=== PATIENT | female | born 1945 | race Caucasian/White ===

== ENCOUNTER 2024-08-27 | Inpatient (IN) | payer MEDICARE, BC ==
[~2024-08-27] VITALS: Ht 162.6 cm; Wt 69.9 kg
[2024-08-27 00:36] LABS: BASOPHILS # (AUTO) 0.1 X10'3 (0-0.2); BASOPHILS % (AUTO) 0.9 % (0-1); EOSINOPHILS # (AUTO) 0.2 X10'3 (0-0.9); EOSINOPHILS % (AUTO) 3.2 % (0-6); HEMATOCRIT 41.4 % (35.0-45.0); HEMOGLOBIN 14.3 g/dl (12.0-16.0); LYMPHOCYTES # (AUTO) 1.5 X10'3 (1.1-4.8); LYMPHOCYTES % (AUTO) 24.7 % (21-51); MEAN CORPUSCULAR HEMOGLOBIN 33.4 PG (27.0-31.0); MEAN CORPUSCULAR HGB CONC 34.5 g/dL (33.0-36.5); MEAN PLATELET VOLUME 7.8 FL (7.4-10.4); MONOCYTES # (AUTO) 0.4 X10'3 (0-0.9); MONOCYTES % (AUTO) 5.9 % (2-12); NEUTROPHILS # (AUTO) 4.1 X10'3 (1.8-7.7); NEUTROPHILS % (AUTO) 65.3 % (42-75); PLATELET COUNT 218 X10'3 (140-440); RED BLOOD COUNT 4.27 X10'6 (4.20-5.60); WHITE BLOOD COUNT 6.2 X10'3 (4.5-11.0)
[2024-08-27 02:10] LABS: ALANINE AMINOTRANSFERASE 28 U/L (12-78); ALBUMIN 4.3 G/DL (3.4-5.0); ALBUMIN/GLOBULIN RATIO 1.2 (1.1-1.5); ALKALINE PHOSPHATASE 85 IU/L (46-116); ANION GAP 4 (8-16); ASPARTATE AMINO TRANSFERASE 20 U/L (10-37); BILIRUBIN,TOTAL 0.3 MG/DL (0.1-1.0); BLOOD UREA NITROGEN 23 MG/DL (7-18); CALCIUM 9.6 MG/DL (8.5-10.1); CHLORIDE 105 MMOL/L (99-107); CREATININE 1.21 MG/DL (0.40-0.90); GLUCOSE 135 MG/DL (70-104); POTASSIUM 3.7 MMOL/L (3.5-5.1); SODIUM 141 MMOL/L (135-145); TOTAL CARBON DIOXIDE 31.9 MMOL/L (24-32); TOTAL PROTEIN 7.8 G/DL (6.4-8.2); eCRCL 33 ML/MIN; eGFR 43 ML/MIN
[2024-08-27 02:18] LABS: PRO BRAIN NATRIURETIC PEPTIDE 142 PG/ML (0-450)
[2024-08-27 05:33] LABS: APTT 25 SECONDS (22-32); PROTHROMBIN TIME 10.3 SECONDS (9.0-12.0)
[2024-08-27] MEDS ORDERED: iohexol 350MG/ML 100ml bottle IV ONE (05:43)
[2024-08-27] MEDS: meclizine 12.5mg tablet PO ONE (05:53)
[2024-08-27] MEDS ORDERED: morphine 2 MG/ML inj. syringe IV PRN ×2 (07:15)
[2024-08-27] MEDS ORDERED: ondansetron/PF 4mg/2ml inj IV PRN (07:15)
[2024-08-27] MEDS: dextrose 5%-1/2 normal saline 1,000 ML IV SCH (07:15)
[2024-08-27] MEDS ORDERED: mag hydrox/Alum hydrox/simeth 30ml oral suspension PO PRN (07:15)
[2024-08-27] MEDS ORDERED: acetaminophen 325mg tablet PO PRN ×2 (07:15)
[2024-08-27] MEDS ORDERED: magnesium hydroxide 30ml (MOM) UD suspension PO PRN (07:15)
[2024-08-27] MEDS: docusate sod 100mg capsule PO SCH (08:00)
[2024-08-27 09:35] LABS: HEMOGLOBIN A1C 5.7 % (4.5-6.2)
[2024-08-27] MEDS: enoxaparin 40mg/0.4ml syringe SUBCUT SCH (09:43)
[2024-08-27] MEDS: aspirin 81mg, enteric-coated 1 TAB TABLET.DR PO SCH (09:43)
[2024-08-27 14:45] VITALS: BP 154/63; PULSE 66; RESP 20; TEMP 97.3
[2024-08-27 18:00] VITALS: BP 138/65; PULSE 72; RESP 16; TEMP 97.5; O2SAT 96
[2024-08-27] MEDS ORDERED: LOVA40TA2 (21:39)
[2024-08-27] MEDS ORDERED: ASCO100031 PO ×2 (21:46→22:07)
[2024-08-27] MEDS ORDERED: PSYL0.4C2 PO ×2 (21:46→22:08)
[2024-08-27] MEDS ORDERED: ACET-3414 PO ×2 (21:46→22:06)
[2024-08-27] MEDS ORDERED: ASPI-1265 PO ×2 (21:46→22:05)
[2024-08-27] MEDS ORDERED: [UNRECOGNIZED DRUG - CODE] PO (21:46)
[2024-08-27 22:00] VITALS: BP 107/50; PULSE 75; RESP 13; TEMP 97.6; O2SAT 96
[2024-08-27] MEDS ORDERED: VITA400T10 PO (22:09)
[2024-08-28 05:00] VITALS: BP_SYST 109; BP_SYST 115; BP_SYST 121; BP_DIAS 55; BP_DIAS 58; BP_DIAS 64; PULSE 64; PULSE 69; PULSE 71
[2024-08-28 06:00] VITALS: BP 121/55; PULSE 68; RESP 15; TEMP 97.8; O2SAT 96
[2024-08-28 06:14] LABS: BASOPHILS % (AUTO) 0.7 % (0-1); EOSINOPHILS # (AUTO) 0.3 X10'3 (0-0.9); EOSINOPHILS % (AUTO) 6.1 % (0-6); HEMATOCRIT 37.4 % (35.0-45.0); HEMOGLOBIN 12.8 g/dl (12.0-16.0); LYMPHOCYTES % (AUTO) 38.1 % (21-51); MEAN CORPUSCULAR HEMOGLOBIN 33.5 PG (27.0-31.0); MEAN CORPUSCULAR HGB CONC 34.3 g/dL (33.0-36.5); MEAN CORPUSCULAR VOLUME 97.5 FL (78-98); MEAN PLATELET VOLUME 8.4 FL (7.4-10.4); MONOCYTES # (AUTO) 0.4 X10'3 (0-0.9); MONOCYTES % (AUTO) 6.7 % (2-12); NEUTROPHILS # (AUTO) 2.5 X10'3 (1.8-7.7); NEUTROPHILS % (AUTO) 48.4 % (42-75); PLATELET COUNT 207 X10'3 (140-440); RED BLOOD COUNT 3.83 X10'6 (4.20-5.60); RED CELL DISTRIBUTION WIDTH 12.9 % (11.5-14.5); WHITE BLOOD COUNT 5.3 X10'3 (4.5-11.0)
[2024-08-28 06:17] LABS: ANION GAP 6 (8-16); BLOOD UREA NITROGEN 21 MG/DL (7-18); BUN/CREATININE RATIO 22.6 (10.0-20.0); CALCIUM 8.4 MG/DL (8.5-10.1); CHLORIDE 106 MMOL/L (99-107); CHOL/HDL RATIO 3.6 (0.00-4.99); CHOLESTEROL 179 MG/DL (0-200); CREATININE 0.93 MG/DL (0.40-0.90); GLUCOSE 111 MG/DL (70-104); HDL CHOLESTEROL 50 MG/DL (35-60); LDL CHOLESTEROL 98 MG/DL (50-100); POTASSIUM 3.6 MMOL/L (3.5-5.1); SODIUM 141 MMOL/L (135-145); TOTAL CARBON DIOXIDE 28.9 MMOL/L (24-32); TRIGLYCERIDES 144 MG/DL (20-135); eCRCL 43 ML/MIN; eGFR 58 ML/MIN
[2024-08-28 09:45] VITALS: RESP 16; O2SAT 95
[2024-08-28 10:00] VITALS: BP 131/59; PULSE 78; RESP 16; TEMP 97.4; O2SAT 95
[2024-08-28] MEDS ORDERED: MECL-226 PO (13:15)
== END 2024-08-28 14:00 | disposition home or self-care (01) | DRG 149 ==
LOC: ER → ED HOLD 07:18 → ORTHO 4S 14:50
PROVIDERS: ADMIT Internal Medicine; ATTEND Internal Medicine
PROC: B3251ZZ Computerized Tomography (CT Scan) of Bilateral Common Carotid Arteries using Low Osmolar Contrast (ICD-10-PCS; principal; 2024-08-27)
PROC: B32G1ZZ Computerized Tomography (CT Scan) of Bilateral Vertebral Arteries using Low Osmolar Contrast (ICD-10-PCS; 2024-08-27)
PROC: B32R1ZZ Computerized Tomography (CT Scan) of Intracranial Arteries using Low Osmolar Contrast (ICD-10-PCS; 2024-08-27)
PROC: B3281ZZ Computerized Tomography (CT Scan) of Bilateral Internal Carotid Arteries using Low Osmolar Contrast (ICD-10-PCS; 2024-08-27)
DX: H81.4 Vertigo of central origin (principal); C71.9 Malignant neoplasm of brain, unspecified; E78.00 Pure hypercholesterolemia, unspecified; K21.9 Gastro-esophageal reflux disease without esophagitis; Z90.710 Acquired absence of both cervix and uterus
CPT/HCPCS: 36415; 70450; 70496; 70498; 70551; 71045; 80048; 80053; 80061; 83036; 83880; 84484; 85025; 85610; 85651; 85730; 87081; 92508; 92616; 93005; 93306; 93880; 97116; 97161; 97530; 99291; G0378; J1650; J8597; Q9967